=== PATIENT | male | born 2005 | race Caucasian/White ===

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

== ENCOUNTER 2024-01-04 16:00 | Outpatient (RCR) | payer BC | END 2024-01-10 | disposition home or self-care (01) | LOC: MKS.ESL.PT | DX: Z48.89 Encounter for other specified surgical aftercare (principal); S83.281D Other tear of lateral meniscus, current injury, right knee, subsequent encounter; S83.512D Sprain of anterior cruciate ligament of left knee, subsequent encounter ==